=== PATIENT | female | born 1960 | race Caucasian/White ===

== ENCOUNTER → 2016-06-23 17:06 | Outpatient (CLI) | payer MEDICAID ==
[~2016-06-23 17:06] MED LIST: NORCO 7.5/325 T1 TA1 PO; PROMETRIUM100 MG PO; [UNRECOGNIZED DRUG - OTHER]
[2016-08-01 06:32] VITALS: BMI 19.7
== END | disposition home or self-care (01) ==
LOC: D.MAMMO 05-30 15:00
DX: Z12.31 Encounter for screening mammogram for malignant neoplasm of breast (principal)

== ENCOUNTER 2016-08-01 05:55 | Day surgery (SDC) | payer MEDICAID ==
[2016-07-29 13:42] LABS: HEMOGLOBIN 14.4 g/dL (12-16); MCH 32.1 pg (26.0-34.0); MCHC 33.5 g/dL (31.0-37.0); MEAN PLATELET VOLUME 9.6 fL (7.4-10.4); RBC 4.48 10x6/uL (4.00-5.40); RDW 12.8 % (11.5-14.5)
[~2016-08-01] VITALS: Ht 162.6 cm; Wt 52.2 kg
[~2016-08-01 05:55] MED LIST changes: -NORCO 7.5/325 T1 TA1 PO; -[UNRECOGNIZED DRUG - OTHER]
[2016-08-01] MEDS ORDERED: [UNRECOGNIZED DRUG - OTHER] (06:31)
[2016-08-01 06:32] VITALS: BP 153/81; Ht 162.6 cm; Wt 52.2 kg
--- NOTE | 2016-08-01 09:23 | NUR ---
0918 TOLERATED SODA & JELLO WITH EMESIS OR COMPLAINTS OF NAUSEA. 1 NORCO 7.5/325MG PO FOR COMPLAINTS OF PAIN TO RIGHT FOOT. RANKS PAIN 6-7/10. RIGHT FOOT UP ON 2 PILLOWS WITH ICE PACK TO INSTEP OF FOOT. Susu CALIXTO R.N.
[2016-08-01] MEDS ORDERED: NORCO 7.5/325 T1 TA1 PO (09:26)
--- NOTE | 2016-08-01 09:46 | NUR ---
[address] CHILD'S OFFICE APPLYING POST OP WALKING BOOT TO PT. Susu CALIXTO R.N.
--- NOTE | 2016-08-01 15:35 | NUR ---
1005 IV DC'ED WITH CATH INTACT & 50ML LTC. DRESSING TO FOOT CDI. ASSISTING WITH DRESSING. Susu CALIXTO R.N. 1025 DRESSED. ASEAKE & ALERT. GIVEN DISCHARGE INSTRUCTION INFORMATION PACKET INCLUDING MED REC., RX LORTAB 7.5/325MG, DANYELL GREENBERG'S POST-OP INSTRUCTIONS SHEET, RTC APPT., & D/C INSTRUCTIONS. PT VOICED UNDERSTANDING. POST OP BOOT ON. PT TO PRIVATE CAR PER WHEELCHAIR BY VOLUNTEER. HOME WITH . Susu CALIXTO R.N.
== END 2016-08-01 10:25 | disposition home or self-care (01) ==
LOC: D.OPS 05:55 → D.PAN 07:30 → D.OPS 10:25
PROVIDERS: Anesthesiology
DX: M20.11 Hallux valgus (acquired), right foot (principal)

== ENCOUNTER 2016-11-07 09:50 | Day surgery (SDC) | payer MEDICAID ==
[~2016-11-07] VITALS: Ht 162.6 cm; Wt 52.2 kg
[~2016-11-07 09:50] MED LIST changes: +MULTIPLE VITAMI1 TA1 PO; +NORCO 7.5/325 T1 TA1 PO; +PROBIOTIC1 EAC1 PO; +[UNRECOGNIZED DRUG - OTHER]
[2016-11-07 10:28] LABS: HEMATOCRIT 42.4 % (36.0-48.0); HEMOGLOBIN 14.4 g/dL (12-16); MCH 32.7 pg (26.0-34.0); MCV 96.1 fL (80.0-100.0); MEAN PLATELET VOLUME 9.5 fL (7.4-10.4); RBC 4.41 10x6/uL (4.00-5.40); RDW 12.5 % (11.5-14.5); WBC 4.5 10x3/uL (4.8-10.8)
[2016-11-07 11:07] VITALS: BP 140/86; Ht 162.6 cm; Wt 52.2 kg
[2016-11-07 11:30] LABS: HCG URINE NEGATIVE (NEGATIVE)
--- NOTE | 2016-11-07 13:32 | NUR ---
1320 SERVED FULL LIQUID DIET. Susu CALIXTO R.N.
[2016-11-07] MEDS ORDERED: NORCO 7.5/325 T1 TA1 PO (13:36)
--- NOTE | 2016-11-07 14:24 | NUR ---
1410 DRESSED, AWAKE & ALERT. GIVEN DISCHARGE INSTRUCTIONS INCLUDING, RX: LORTAB, MED REC., OPS D/C INSTRUCTIONS & DR. CHILD'S AFTER SURGERY CARE INSTRUCTIONS. PT VOICED UNDERSTANDING. TO PRIVATE CAR PER WHEELCHAIR BY VOLUNTEER. HOME WITH MALE FRIEND. Susu CALIXTO R.N.
== END 2016-11-07 14:10 | disposition home or self-care (01) ==
LOC: D.OPS 09:50 → D.PAN 12:00 → D.OPS 12:00
PROVIDERS: Anesthesiology; Podiatrist Foot & Ankle Surgery
DX: M21.612 Bunion of left foot (principal)